=== PATIENT | female | born 1930 | race Caucasian/White ===

== ENCOUNTER 2017-05-16 20:50 | Inpatient (IN) | payer MEDICARE, OTHER ==
[~2017-05-16] VITALS: Ht 152.4 cm; Wt 56.8 kg
[~2017-05-16 20:50] MED LIST: ASPI-611 PO; CALC-1197 PO; COLC0.6T66 PO; COR3.125T PO; DEXL60CA3 PO; DOCU50CA6 PO; HYDR200T84 PO; MULT-342 PO; VALS80TA2 PO
[2017-05-16] MEDS ORDERED: TRAM50TA2 PO (21:22)
[2017-05-16] MEDS ORDERED: OMEP20TA23 PO (21:22)
[2017-05-16] MEDS ORDERED: SENN-161 PO (21:24)
[2017-05-16] MEDS ORDERED: POLY17PO10 PO (21:24)
[2017-05-16] MEDS ORDERED: MINE1OIL2 PO (21:27)
[2017-05-16] MEDS ORDERED: ondansetron/PF 4mg/2ml inj IV ONE (21:35)
[2017-05-16] MEDS ORDERED: fentaNYL/PF 50MCG/1 ML 2ML syringe IV ONE (21:35)
[2017-05-16] MEDS ORDERED: HYDROmorphone inj. 0.5 MG/0.5 ML DISP.SYRIN IV PRN (22:05)
[2017-05-16] MEDS ORDERED: potassium Cl 40MEQ/NS 500ml 500 ML IV PRN ×2 (22:05)
[2017-05-16] MEDS ORDERED: ondansetron/PF 4mg/2ml inj IV PRN (22:05)
[2017-05-16] MEDS ORDERED: ipratropium/albuterol 3ml nebule NEB PRN (22:05)
[2017-05-16] MEDS ORDERED: magnesium 4gm in 100ml NS 100 ML IV PRN (22:05)
[2017-05-16] MEDS ORDERED: acetaminophen 325mg tablet PO PRN (22:05)
[2017-05-16] MEDS ORDERED: bisacodyl 10mg suppository rectal RC PRN (22:05)
[2017-05-16] MEDS ORDERED: magnesium 2GM in 50ml NS 50 ML IV PRN (22:05)
[2017-05-16] MEDS ORDERED: mag hydrox/Alum hydrox/simeth 30ml oral suspension PO PRN (22:05)
[2017-05-16 22:12] LABS: BASOPHILS % (AUTO) 0.4 % (0-1); EOSINOPHILS # (AUTO) 0.8 X10'3 (0-0.9); HEMATOCRIT 33.1 % (35.0-45.0); HEMOGLOBIN 11.3 g/dl (12.0-16.0); LYMPHOCYTES # (AUTO) 1.8 X10'3 (1.1-4.8); LYMPHOCYTES % (AUTO) 21.4 % (21-51); MEAN CORPUSCULAR VOLUME 85.2 FL (78-98); MEAN PLATELET VOLUME 6.2 FL (7.4-10.4); MONOCYTES # (AUTO) 0.7 X10'3 (0-0.9); MONOCYTES % (AUTO) 7.7 % (2-12); NEUTROPHILS # (AUTO) 5.3 X10'3 (1.8-7.7); NEUTROPHILS % (AUTO) 61.5 % (42-75); PLATELET COUNT 231 X10'3 (140-440); RED BLOOD COUNT 3.89 X10'6 (4.20-5.60); RED CELL DISTRIBUTION WIDTH 14.5 % (11.5-14.5); WHITE BLOOD COUNT 8.5 X10'3 (4.5-11.0)
[2017-05-16 22:25] LABS: PARTIAL THROMBOPLASTIN TIME 26 SECONDS (22-32); PROTHROMBIN TIME 10.3 SECONDS (9.0-12.0)
[2017-05-16 22:28] LABS: ALANINE AMINOTRANSFERASE 21 U/L (12-78); ALBUMIN 2.9 G/DL (3.4-5.0); ALBUMIN/GLOBULIN RATIO 0.8 (1.1-1.5); ALKALINE PHOSPHATASE 59 IU/L (46-116); ANION GAP 9 (8-16); ASPARTATE AMINO TRANSFERASE 21 U/L (10-37); BILIRUBIN,TOTAL 0.4 MG/DL (0.1-1.0); BLOOD UREA NITROGEN 13 MG/DL (7-18); BUN/CREATININE RATIO 18.6 (6.6-38.0); CALCIUM 8.6 MG/DL (8.5-10.1); CHLORIDE 105 MMOL/L (99-107); GLUCOSE 98 MG/DL (70-104); POTASSIUM 3.8 MMOL/L (3.5-5.1); SODIUM 140 MMOL/L (135-145); TOTAL CARBON DIOXIDE 26.4 MMOL/L (24-32); TOTAL PROTEIN 6.6 G/DL (6.4-8.2); eGFR 79 ML/MIN
[2017-05-16] MEDS: heparin, porcine 5000 units/ml vial SQ SCH (23:55)
[2017-05-16] MEDS: HYDROmorphone inj. 0.5 MG/0.5 ML DISP.SYRIN IV PRN (23:56)
[2017-05-17] VITALS (16 sets, daily range): BP systolic 120–163; BP diastolic 44–80
[2017-05-17] MEDS: normal saline 1000ml 1,000 ML IV SCH ×2 (00:04→14:44)
[2017-05-17] MEDS: HYDROmorphone inj. 0.5 MG/0.5 ML DISP.SYRIN IV PRN (04:43)
[2017-05-17 06:13] LABS: BASOPHILS % (AUTO) 0.4 % (0-1); EOSINOPHILS # (AUTO) 0.7 X10'3 (0-0.9); EOSINOPHILS % (AUTO) 8.5 % (0-6); HEMATOCRIT 33.3 % (35.0-45.0); HEMOGLOBIN 11.4 g/dl (12.0-16.0); LYMPHOCYTES # (AUTO) 1.2 X10'3 (1.1-4.8); LYMPHOCYTES % (AUTO) 14.2 % (21-51); MEAN CORPUSCULAR HEMOGLOBIN 29.1 PG (27.0-31.0); MEAN CORPUSCULAR HGB CONC 34.2 % (33.0-36.5); MEAN PLATELET VOLUME 6.8 FL (7.4-10.4); MONOCYTES # (AUTO) 0.8 X10'3 (0-0.9); MONOCYTES % (AUTO) 9.4 % (2-12); NEUTROPHILS # (AUTO) 5.5 X10'3 (1.8-7.7); NEUTROPHILS % (AUTO) 67.5 % (42-75); PLATELET COUNT 219 X10'3 (140-440); RED BLOOD COUNT 3.92 X10'6 (4.20-5.60); RED CELL DISTRIBUTION WIDTH 14.3 % (11.5-14.5); WHITE BLOOD COUNT 8.2 X10'3 (4.5-11.0)
[2017-05-17 06:37] LABS: ALANINE AMINOTRANSFERASE 20 U/L (12-78); ALBUMIN/GLOBULIN RATIO 0.9 (1.1-1.5); ALKALINE PHOSPHATASE 59 IU/L (46-116); ANION GAP 12 (8-16); ASPARTATE AMINO TRANSFERASE 18 U/L (10-37); BILIRUBIN,TOTAL 0.5 MG/DL (0.1-1.0); BLOOD UREA NITROGEN 13 MG/DL (7-18); BUN/CREATININE RATIO 19.1 (6.6-38.0); CALCIUM 8.6 MG/DL (8.5-10.1); CHLORIDE 105 MMOL/L (99-107); CREATININE 0.68 MG/DL (0.40-0.90); GLUCOSE 74 MG/DL (70-104); MAGNESIUM 1.7 MG/DL (1.5-2.4); POTASSIUM 3.7 MMOL/L (3.5-5.1); SODIUM 141 MMOL/L (135-145); TOTAL CARBON DIOXIDE 24.4 MMOL/L (24-32); TOTAL PROTEIN 6.5 G/DL (6.4-8.2); eGFR 82 ML/MIN
[2017-05-17] MEDS: hydroxychloroquine 200mg tablet PO SCH ×3 (07:36→19:47)
[2017-05-17] MEDS: multivitamins, therapeutics tablet PO SCH (07:36)
[2017-05-17] MEDS: carVEDilol 3.125mg tablet PO SCH ×2 (07:36→19:47)
[2017-05-17] MEDS: K and/or MAG REPLACEMENT MC SCH (07:41)
[2017-05-17] MEDS: heparin, porcine 5000 units/ml vial SQ SCH ×3 (08:00→23:51)
[2017-05-17] MEDS ORDERED: sevoflurane 250ml liquid IH ONE (12:21)
[2017-05-17] MEDS ORDERED: ePHEDrine 50MG/ML INJ. ONE (12:21)
[2017-05-17] MEDS ORDERED: fentaNYL/PF 50MCG/1 ML 2ML syringe ONE (12:24)
[2017-05-17] MEDS ORDERED: propofol inj 20 ML IV ONE (12:43)
[2017-05-17] MEDS ORDERED: LIDOcaine 2% (20mg/ml) 5ml vial ONE (12:43)
[2017-05-17] MEDS ORDERED: succinylcholine 20mg/ml inj IV ONE (12:43)
[2017-05-17] MEDS: potassium cl 20mEq in 1/2 NS 1,000 ML IV SCH (13:01)
[2017-05-17] MEDS ORDERED: magnesium hydroxide 30ml (MOM) UD suspension PO PRN (13:05)
[2017-05-17] MEDS ORDERED: bisacodyl 10mg suppository rectal RC PRN (13:05)
[2017-05-17] MEDS ORDERED: acetaminophen 325mg tablet PO PRN (13:05)
[2017-05-17] MEDS ORDERED: ondansetron/PF 4mg/2ml inj IV PRN (13:05)
[2017-05-17] MEDS ORDERED: diphenhydrAMINE 25mg capsule PO PRN ×2 (13:05)
[2017-05-17] MEDS: sennosides 8.6mg tablet PO SCH (21:00)
[2017-05-18] VITALS (7 sets, daily range): BP systolic 94–126; BP diastolic 43–76
[2017-05-18] MEDS ORDERED: HYDROcodone/acetaminophen 5mg/325mg tablet PO PRN (05:10)
[2017-05-18] MEDS ORDERED: HYDROcodone/acetaminophen 10/325mg tab PO PRN ×2 (05:10→06:00)
[2017-05-18] MEDS: HYDROcodone/acetaminophen 5mg/325mg tablet PO PRN ×4 (06:02→20:52)
[2017-05-18 06:18] LABS: ALANINE AMINOTRANSFERASE 20 U/L (12-78); ALBUMIN 2.5 G/DL (3.4-5.0); ALBUMIN/GLOBULIN RATIO 0.8 (1.1-1.5); ANION GAP 10 (8-16); ASPARTATE AMINO TRANSFERASE 25 U/L (10-37); BILIRUBIN,TOTAL 0.5 MG/DL (0.1-1.0); BLOOD UREA NITROGEN 21 MG/DL (7-18); BUN/CREATININE RATIO 25.3 (6.6-38.0); CHLORIDE 105 MMOL/L (99-107); CREATININE 0.83 MG/DL (0.40-0.90); GLUCOSE 79 MG/DL (70-104); MAGNESIUM 1.7 MG/DL (1.5-2.4); SODIUM 138 MMOL/L (135-145); TOTAL CARBON DIOXIDE 23.5 MMOL/L (24-32); TOTAL PROTEIN 5.8 G/DL (6.4-8.2); eGFR 65 ML/MIN
[2017-05-18 06:19] LABS: ALKALINE PHOSPHATASE 55 IU/L (46-116)
[2017-05-18 06:39] LABS: BASOPHILS % (AUTO) 0.3 % (0-1); EOSINOPHILS # (AUTO) 0.4 X10'3 (0-0.9); EOSINOPHILS % (AUTO) 4.2 % (0-6); HEMATOCRIT 29.9 % (35.0-45.0); HEMOGLOBIN 10.5 g/dl (12.0-16.0); LYMPHOCYTES # (AUTO) 1.1 X10'3 (1.1-4.8); LYMPHOCYTES % (AUTO) 10.8 % (21-51); MEAN CORPUSCULAR HEMOGLOBIN 29.5 PG (27.0-31.0); MEAN CORPUSCULAR HGB CONC 35.1 % (33.0-36.5); MEAN CORPUSCULAR VOLUME 83.9 FL (78-98); MEAN PLATELET VOLUME 7.2 FL (7.4-10.4); MONOCYTES % (AUTO) 9.6 % (2-12); NEUTROPHILS # (AUTO) 7.6 X10'3 (1.8-7.7); NEUTROPHILS % (AUTO) 75.1 % (42-75); PLATELET COUNT 211 X10'3 (140-440); RED BLOOD COUNT 3.56 X10'6 (4.20-5.60); RED CELL DISTRIBUTION WIDTH 13.4 % (11.5-14.5); WHITE BLOOD COUNT 10.1 X10'3 (4.5-11.0)
[2017-05-18] MEDS: K and/or MAG REPLACEMENT MC SCH (07:49)
[2017-05-18] MEDS: carVEDilol 3.125mg tablet PO SCH ×2 (08:00→20:52)
[2017-05-18] MEDS: hydroxychloroquine 200mg tablet PO SCH ×2 (08:10→20:53)
[2017-05-18] MEDS: multivitamins, therapeutics tablet PO SCH (08:10)
[2017-05-18] MEDS: heparin, porcine 5000 units/ml vial SQ SCH ×2 (08:14→16:05)
[2017-05-18] MEDS: potassium cl 20mEq in 1/2 NS 1,000 ML IV SCH (11:17)
[2017-05-18] MEDS: sennosides 8.6mg tablet PO SCH (20:53)
[2017-05-19] MEDS: heparin, porcine 5000 units/ml vial SQ SCH ×2 (00:51→07:18)
[2017-05-19] MEDS: HYDROmorphone inj. 0.5 MG/0.5 ML DISP.SYRIN IV PRN (00:54)
[2017-05-19 01:53] VITALS: BP 143/68
[2017-05-19] MEDS: potassium cl 20mEq in 1/2 NS 1,000 ML IV SCH (05:01)
[2017-05-19 05:43] LABS: BASOPHILS % (AUTO) 0.3 % (0-1); EOSINOPHILS # (AUTO) 0.7 X10'3 (0-0.9); EOSINOPHILS % (AUTO) 9.4 % (0-6); HEMATOCRIT 29.9 % (35.0-45.0); HEMOGLOBIN 10.3 g/dl (12.0-16.0); LYMPHOCYTES # (AUTO) 1.3 X10'3 (1.1-4.8); LYMPHOCYTES % (AUTO) 16.7 % (21-51); MEAN CORPUSCULAR HEMOGLOBIN 29.2 PG (27.0-31.0); MEAN CORPUSCULAR HGB CONC 34.3 % (33.0-36.5); MEAN CORPUSCULAR VOLUME 85.1 FL (78-98); MEAN PLATELET VOLUME 6.4 FL (7.4-10.4); MONOCYTES # (AUTO) 0.7 X10'3 (0-0.9); NEUTROPHILS # (AUTO) 4.9 X10'3 (1.8-7.7); NEUTROPHILS % (AUTO) 64.6 % (42-75); PLATELET COUNT 204 X10'3 (140-440); RED BLOOD COUNT 3.52 X10'6 (4.20-5.60); RED CELL DISTRIBUTION WIDTH 14.4 % (11.5-14.5); WHITE BLOOD COUNT 7.6 X10'3 (4.5-11.0)
[2017-05-19 05:53] LABS: ALANINE AMINOTRANSFERASE 22 U/L (12-78); ALBUMIN 2.5 G/DL (3.4-5.0); ALBUMIN/GLOBULIN RATIO 0.7 (1.1-1.5); ALKALINE PHOSPHATASE 52 IU/L (46-116); ANION GAP 7 (8-16); ASPARTATE AMINO TRANSFERASE 21 U/L (10-37); BILIRUBIN,TOTAL 0.3 MG/DL (0.1-1.0); BLOOD UREA NITROGEN 20 MG/DL (7-18); BUN/CREATININE RATIO 26.3 (6.6-38.0); CALCIUM 8.6 MG/DL (8.5-10.1); CHLORIDE 109 MMOL/L (99-107); CREATININE 0.76 MG/DL (0.40-0.90); GLUCOSE 97 MG/DL (70-104); POTASSIUM 4.3 MMOL/L (3.5-5.1); SODIUM 143 MMOL/L (135-145); TOTAL CARBON DIOXIDE 27.5 MMOL/L (24-32); TOTAL PROTEIN 5.9 G/DL (6.4-8.2); eGFR 72 ML/MIN
[2017-05-19 06:00] VITALS: BP 119/47
[2017-05-19 06:15] VITALS: BP 132/54
[2017-05-19] MEDS ORDERED: traMADol 50MG tablet PO PRN (06:30)
[2017-05-19] MEDS: hydroxychloroquine 200mg tablet PO SCH (07:17)
[2017-05-19] MEDS: multivitamins, therapeutics tablet PO SCH (07:17)
[2017-05-19] MEDS: carVEDilol 3.125mg tablet PO SCH (07:17)
[2017-05-19] MEDS: nystatin 15 GM powder TP SCH ×2 (09:39→13:00)
[2017-05-19 10:00] VITALS: BP 120/60
== END 2017-05-19 16:20 | DRG 561 ==
LOC: ER 20:51 → ED HOLD 22:04 → EDBEDREQTM 22:26 → ORTHO 4S 23:30
PROVIDERS: ADMIT Family Medicine; ATTEND Family Medicine
PROC: 0SW9XJZ Revision of Synthetic Substitute in Right Hip Joint, External Approach (ICD-10-PCS; principal; 2017-05-17 12:18)
DX: T84.020A Dislocation of internal right hip prosthesis, initial encounter (principal); M06.9 Rheumatoid arthritis, unspecified; I10 Essential (primary) hypertension; M19.90 Unspecified osteoarthritis, unspecified site; Z96.653 Presence of artificial knee joint, bilateral; R21 Rash and other nonspecific skin eruption; K59.09 Other constipation; I25.10 Atherosclerotic heart disease of native coronary artery without angina pectoris; K21.9 Gastro-esophageal reflux disease without esophagitis; Y79.2 Prosthetic and other implants, materials and accessory orthopedic devices associated with adverse incidents; Z89.421 Acquired absence of other right toe(s); Z90.49 Acquired absence of other specified parts of digestive tract; Z88.5 Allergy status to narcotic agent; Z79.899 Other long term (current) drug therapy; Z79.82 Long term (current) use of aspirin; Y92.89 Other specified places as the place of occurrence of the external cause
CPT/HCPCS: 36415; 71045; 73501; 73502; 76000; 80053; 83735; 85025; 85610; 85730; 87070; 94640; 94760; 96374; 96375; 97116; 97161; 97530; 99285; A4353; J0330; J1170; J1644; J2001; J2405; J2704; J3010; J7030; J7120; Q0163

== ENCOUNTER 2019-04-29 09:26 | Emergency (ER) | payer MEDICARE, OTHER ==
[~2019-04-29] VITALS: Ht 152.4 cm; Wt 52.5 kg
[~2019-04-29 09:26] MED LIST changes: -COLC0.6T66 PO; -DEXL60CA3 PO; +MINE1OIL2 PO; +OMEP20TA23 PO; +POLY17PO10 PO; +SENN-162 PO; +TRAM50TA2 PO; -VALS80TA2 PO
--- NOTE | 2019-04-29 11:00 | NUR ---
Enema administered per MARLEN Craig's order. Patient tolerating well.
--- NOTE | 2019-04-29 11:47 | NUR ---
Patient still retaining and tolerating enema solution well, does not yet feel the urge to pass stool.
--- NOTE | 2019-04-29 12:39 | NUR ---
kim parsons engaged in physical impaction removal. ptw; scant out, but stool noted as very soft reflecting a change from initial assessment.
[2019-04-29 12:40] VITALS: BP 113/71
[2019-04-29] MEDS ORDERED: magnesium citrate 296ml oral solution PO ONE (12:45)
--- NOTE | 2019-04-29 12:50 | NUR ---
per preeti, ok to transport pt back via [facility]. Updated preeti on pt's tx and need to administer balance of mag citrate this evening. Preeti verbalized understanding of dc poc.
[2019-04-29 14:45] LABS: OCCULT BLOOD STOOL NEGATIVE (Neg)
== END 2019-04-29 14:14 | disposition home or self-care (01) ==
LOC: ER 09:26
DX: K59.00 Constipation, unspecified (principal); I10 Essential (primary) hypertension; M06.9 Rheumatoid arthritis, unspecified; Z90.49 Acquired absence of other specified parts of digestive tract; Z98.890 Other specified postprocedural states; Z88.5 Allergy status to narcotic agent; Z79.82 Long term (current) use of aspirin; Z79.899 Other long term (current) drug therapy
CPT/HCPCS: 82272; 99283